=== PATIENT | female | born 1980 | race Caucasian/White ===

== ENCOUNTER 2017-05-10 10:52 | Emergency (ER) | payer MEDICARE, OTHER ==
--- NOTE | 2017-05-10 11:41 | ED Physician Chart ---
ED Chief Complaint/HPI - Patient Information Date Seen:: 05/10/17 Time Seen:: 11:25 Chief Complaint:: myalgia History of Present Illness:: Patient had onset 2 days ago for back pain chest pain and cough productive of brown sputum. Her oral temperature was 104 last night. Patient is nauseated but does not have vomiting or diarrhea. Patient did not receive influenza vaccination this season. Allergies:: Allergies Allergy/AdvReac Type Severity Reaction Status Date / Time No Known Allergies Allergy Verified 05/10/17 11:01 Vitals:: Vital Signs - 8 hr 05/10/17 11:01 Temp 100.7 F HR 108 RR 19 BP 120/75 O2 Sat % 96 Historian:: Patient Review:: Nurse's Note Reviewed ED Review of Systems - Review of Systems General/Constitutional: Fever, Chills Skin: No skin lesions Head: No headache Eyes: No loss of vision ENT: No earache Neck: No thyromegaly, No stiffness Cardio Vascular: No palpitations Pulmonary: Cough, Sputum GI: Nausea, No vomiting, No diarrhea G/U: No dysuria, No hematuria Musculoskeletal: Back pain, Muscle pain Psychiatric: No prior psych history, No depression, No anxiety Hematopoietic: No bruising Allergic/Immuno: No urticaria Neurological: No syncope ED Past Medical History - Past Medical History Past Medical History: No significant medical hx, Other Family History: Heart disease, Diabetes Melitus Social History: Non Smoker, No Alcohol Surgical History: other (lumbar laminectomy) Medication: None Family Medical History - Family Member Mother Hx Family Cancer: No Hx Family Coronary Artery Disease: No Hx Family Congestive Heart Failure: No Hx Family Diabetes: No Hx Family Seizures: No Hx Family Dementia: No Hx Family AIDS: No Hx Family HIV: No Hx Family COPD: No Hx Family Hepatitis: No Hx Family Psychiatric Problems: No Hx Family Tuberculosis: No ED Physical Exam - Physical Examination General/Constitutional: Well-developed, well-nourished, Alert Other Gen/Cons comments:: Mild distress Head: Atraumatic Eyes: Lids, conjuctiva normal, PERRL Skin: Nl inspection, No rash, No skin lesions ENMT: External ears, nose nl, TM canals nl, Nasal exam nl, Lips, teeth, gums nl Neck: No nuchal rigidity Respiratory: Nl effort/Exclusion, Clear to Auscultation Cardio Vascular: RRR GI: No tenderness/rebounding/guarding : No CVA tenderness Extremities: Normal digits & nails Neuro/Psych: No focal deficits Misc: No paraspinal tenderness ED Labs/Radiology/EKG Results - Lab Results Results: Laboratory Results - last 24 hr 05/10/17 12:20 Influenza A (Rapid) POS FOR INF A H Influenza B (Rapid) NEG FOR INF B ED Septic Shock - . Is Septic Shock (SBP<90, OR Lactate>4 mmol\L) present?: No - <6hrs of presentation: Vital Signs: Vital Signs - 8 hr 05/10/17 11:01 Temp 100.7 F HR 108 RR 19 BP 120/75 O2 Sat % 96 ED Reassessment (Disposition) - Reassessment Reassessment Condition:: Unchanged - Diagnosis Diagnosis:: Influenza A - Aftercare/Follow up Instructions Aftercare/Follow-Up Instructions:: Refer to Discharge Instructions Medication Prescribed:: Patient be prescribed Tamiflu 75 mg twice a day for 5 days and Robitussin-DM 10 ml 4 times a day as necessary for cough 4 ounces prescribed - Patient Disposition Discharge/Transfer:: Home Condition at Disposition:: Stable, Unchanged
[2017-05-10] MEDS ORDERED: Guaifenesin DM 10 ML UDC PO ONE (12:40)
[2017-05-10] MEDS ORDERED: Guaifenesin DM 10 ML UDC ONE (12:42)
[2017-05-10 12:53] LABS: INF A SCREEN POS FOR INF A; INF B SCREEN NEG FOR INF B
[2017-05-10] MEDS ORDERED: OSELTAMIVIR PHOSPHATE 75 MG CAP PO SCH (13:30)
== END 2017-05-10 14:00 | disposition home or self-care (01) ==
LOC: ER 10:52
DX: J09.X2 Influenza due to identified novel influenza A virus with other respiratory manifestations (principal)
CPT/HCPCS: 99284; 96372; 87804 ×2; J1885; Z7502